=== PATIENT | male | born 1940 | race American Indian/Alaskan Native ===

== ENCOUNTER 2018-08-10 18:25 | Emergency (ER) | payer MEDICARE ==
[2018-08-10 19:19] LABS: Hematocrit 38.7 % (35.5-45.6); Hemoglobin 12.7 gm/dl (11.8-15.2); Mean Corpuscular HGB Conc 33 % (32-34); Mean Corpuscular Volume 89 fl (84-94); Platelet Count 217 K/mm3 (140-440); Red Blood Count 4.36 M/mm3 (3.65-5.03); Red Cell Distribution Width 14.1 % (13.2-15.2)
[2018-08-10 19:31] LABS: Partial Thromboplastin Time 24.2 Sec. (24.2-36.6)
[2018-08-10 19:38] LABS: Alanine Aminotransferase 9 units/L (7-56); Albumin 3.7 g/dL (3.9-5); BUN/Creatinine Ratio 14; Blood Urea Nitrogen 13 mg/dL (9-20); Calcium 9.3 mg/dL (8.4-10.2); Hemolysis Index 38
--- NOTE | 2018-08-11 00:03 | Emergency Department Report ---
ED Neuro Deficit HPI - General Chief Complaint: Extremity Injury, Lower Stated Complaint: LEG PAIN Time Seen by Provider: 08/10/18 23:00 Source: patient Mode of arrival: Wheelchair Limitations: No Limitations - History of Present Illness Initial Comments: 78 year old male with a past medical history of arthritis, GERD, hypertension, PVD, and PAD with leg stent placement presents to the hospital and complains of 2 episodes of right leg numbness and pain today. Patient was working in his daughter's yard along 1:00 PM. He had right-sided leg pain from the hip radiating down to the toes described as a tingling and numbness sensation. Positive associated pain. Symptoms lasted times one hour before resolving. Episode reoccurred about 5:30 PM and then resolved again. Patient denies any trauma or fall. He denies back pain, slurred speech, or other extremity weakness or numbness. No complaints of urinary incontinence or retention. Denies previous history of herniated disc, stroke, or sciatica. Patient does have history of claudication to bilateral lower extremities with walking however, that pain is different from this episode. Patient does not take aspirin or Plavix due to history of peptic ulcer disease - Related Data Home Medications: Home Medications Medication Instructions Recorded Confirmed Last Taken Travoprost [Travatan Z 0.004%] 1 drop OU QHS 06/02/13 09/14/17 02/16/16 Rosuvastatin (Nf) [Crestor] 20 mg PO QHS 02/17/16 09/14/17 02/16/16 Previous Rx's Medication Instructions Recorded Last Taken Type Lisinopril [Zestril TAB] 10 mg PO QDAY #30 tablet 09/15/17 Unknown Rx Metoprolol Xl [Metoprolol 50 mg PO QDAY #30 tablet 09/15/17 Unknown Rx SUCCINATE ER TAB] hydrALAZINE [Apresoline TAB] 25 mg PO Q8HR #90 tablet 09/15/17 Unknown Rx Gabapentin [Neurontin] 300 mg PO Q8HR #60 capsule 08/11/18 Unknown Rx traMADol [Ultram 50 MG tab] 50 mg PO Q6HR PRN #20 tablet 08/11/18 Unknown Rx Allergies/Adverse Reactions: Allergies Allergy/AdvReac Type Severity Reaction Status Date / Time No Known Allergies Allergy Verified 06/07/13 06:38 ED Review of Systems ROS: Stated complaint: LEG PAIN Other details as noted in HPI Comment: All other systems reviewed and negative ED Past Medical Hx - Past Medical History Previous Medical History?: Yes Hx Hypertension: Yes Hx Heart Attack/AMI: No Hx GERD: Yes (peptic ulcer disease) Hx Liver Disease: No Hx Renal Disease: No Hx Sickle Cell Disease: No Hx Arthritis: Yes (BACK AND ANKLES) Hx Seizures: No Hx Asthma: No Hx COPD: No Additional medical history: Venous insufficiency, High cholesterol, Osteoarthritis, PVD w/claudication, PVD,Atherosclerosis of [place] arteries [place] leg extremities, enlarged prostate - Surgical History Past Surgical History?: Yes Additional Surgical History: Jeffrey leg with stents - Social History Smoking Status: Never Smoker Substance Use Type: None - Medications Home Medications: Home Medications Medication Instructions Recorded Confirmed Last Taken Type Travoprost [Travatan Z 0.004%] 1 drop OU QHS 06/02/13 09/14/17 02/16/16 History Rosuvastatin (Nf) [Crestor] 20 mg PO QHS 02/17/16 09/14/17 02/16/16 History Lisinopril [Zestril TAB] 10 mg PO QDAY #30 tablet 09/15/17 Unknown Rx Metoprolol Xl [Metoprolol 50 mg PO QDAY #30 tablet 09/15/17 Unknown Rx SUCCINATE ER TAB] hydrALAZINE [Apresoline TAB] 25 mg PO Q8HR #90 tablet 09/15/17 Unknown Rx Gabapentin [Neurontin] 300 mg PO Q8HR #60 capsule 08/11/18 Unknown Rx traMADol [Ultram 50 MG tab] 50 mg PO Q6HR PRN #20 tablet 08/11/18 Unknown Rx ED Neuro Physical Exam - General Limitations: No Limitations Suspected Stroke: No - NIHSS Assessment Interval: Baseline 1a. Level of Consciousness: alert/keenly responsive 1b. LOC Questions: answers both correctly 1c. LOC Commands: performs tasks correctly 2. Best Gaze: normal 3. Visual: no visual loss 4. Facial Palsy: normal symmetrical movement 5b. Motor Arm Right: no drift 5a. Motor Arm Left: no drift 6a. Motor Leg Left: no drift 6b. Motor Leg Right: no drift 7. Limb Ataxia: absent 8. Sensory: normal 9. Best Language: no aphasia 10. Dysarthria: normal 11. Extinction/Inattention: no abnormality Total Score: 0 Stroke Severity: No Stroke Symptoms - Other Other exam information: General: No limitations, patient is alert in no acute distress Head exam: Atraumatic, normocephalic Eyes exam: Normal appearance, pupils equal reactive to light, extraocular movements intact ENT: Moist mucous membrane, normal oropharynx Neck exam: Normal inspection, full range of motion, no meningismus nontender Respiratory exam: Clear to auscultation bilateral, no wheezes, rales, crackles Cardiovascular: Normal rate and rhythm, normal heart sounds Abdomen: Soft, nondistended, and nontender, with normal bowel sounds, no rebound, or guarding Extremity: Full range of motion normal inspection no deformity, faint bilateral DP pulses palpated, no pain currently. Pain is not reproducible with straight leg raise. No tenderness at the gluteal area or sciatic notch Back: Normal Inspection, full range of motion, no tenderness Neurologic: Alert, oriented x3, cranial nerves intact, no motor or sensory deficit, patient able to ambulate without difficulty Psychiatric: normal affect, normal mood Skin: Warm, dry, intact ED Course Vital Signs 08/10/18 08/10/18 08/11/18 18:38 23:15 00:31 Temperature 97.4 F L Pulse Rate 86 71 65 Respiratory 20 17 18 Rate Blood Pressure 148/78 Blood Pressure 153/71 136/71 [Left] O2 Sat by Pulse 97 98 Oximetry - Consultations Consultation #1: 08/11/18 Case was discussed with neurologist Dr. Winslow. She agrees that symptoms appeared to be more peripheral/radicular as opposed to CVA given significant pain with symptoms. Advised outpatient follow-up - Lab Data Result diagrams: 08/10/18 19:03 08/10/18 19:03 Lab Results 08/10/18 08/10/18 08/10/18 Range/Units 19:03 19:03 19:03 WBC 10.0 (4.5-11.0) K/mm3 RBC 4.36 (3.65-5.03) M/mm3 Hgb 12.7 (11.8-15.2) gm/dl Hct 38.7 (35.5-45.6) % MCV 89 (84-94) fl MCH 29 (28-32) pg MCHC 33 (32-34) % RDW 14.1 (13.2-15.2) % Plt Count 217 (140-440) K/mm3 PT 13.6 (12.2-14.9) Sec. INR 1.00 (0.87-1.13) APTT 24.2 (24.2-36.6) Sec. Sodium 141 (137-145) mmol/L Potassium 4.3 (3.6-5.0) mmol/L Chloride 105.9 (98-107) mmol/L Carbon Dioxide 24 (22-30) mmol/L Anion Gap 15 mmol/L BUN 13 (9-20) mg/dL Creatinine 0.9 (0.8-1.5) mg/dL Estimated GFR > 60 ml/min BUN/Creatinine Ratio 14 % Glucose 139 H (75-100) mg/dL Calcium 9.3 (8.4-10.2) mg/dL Total Bilirubin 0.30 (0.1-1.2) mg/dL AST 14 (5-40) units/L ALT 9 (7-56) units/L Alkaline Phosphatase 92 (35-129) units/L Total Protein 8.0 (6.3-8.2) g/dL Albumin 3.7 L (3.9-5) g/dL Albumin/Globulin Ratio 0.9 % - Radiology Data Radiology results: report reviewed CT head: No acute findingsC FINAL REPORT PROCEDURE: CT LUMBAR SPINE WO CON TECHNIQUE: Computerized axial tomography of the lumbar spine was performed from T12 to the sacrum without contrast material. HISTORY: transient right leg paresthsias and pain COMPARISON: No prior studies are available for comparison. FINDINGS: There are no fractures or malalignments. There are defects in the inferior endplates of T12, L1, L2 and the superior endplate of L4 consistent with Schmorl's nodes. L1-2: There is moderate loss of disc height. There is no spinal stenosis. There is mild bilateral foraminal narrowing due to facet arthropathy and osteophytic ridging.. L2-3: There is moderate loss of disc height. There is mild disc bulging and moderate facet arthropathy causing mild spinal stenosis. There is moderate bilateral foraminal stenosis worse on the left due to osteophytic ridging.. L3-4: No significant abnormality. L4-5: There is significant loss of disc height. There is diffuse osteophytic ridging and bilateral facet hypertrophy. There is mild spinal stenosis. There is moderate bilateral foraminal stenosis worse on the left.. L5-S1: There is mild loss of disc height. There is no disc bulge or herniation or spinal stenosis. There is moderate bilateral foraminal stenosis due to osteophytic ridging and facet arthropathy.. Other: The sacrum and sacroiliac joints are intact. Soft tissues are unremarkable. IMPRESSION: There are multilevel degenerative changes with spinal and foraminal stenosis as described. There is no fracture or malalignment. - Medical Decision Making Patient appears to have more radicular pain without signs of stroke. Treated with tramadol and Neurontin. Outpatient follow-up with PMD advised. A symptomatic in the ED - Differential Diagnosis sciatica, radiculopathy, herniation Critical Care Time: No Critical care attestation.: If time is entered above; I have spent that time in minutes in the direct care of this critically ill patient, excluding procedure time. ED Disposition Clinical Impression: Sciatica Disposition: TO HOME OR SELFCARE Is pt being admited?: No Does the pt Need Aspirin: No Condition: Stable Instructions: Sciatica (ED) Additional Instructions: Take the medication as prescribed for your right leg numbness and pain. Please note both of these medications can cause drowsiness. Don't drive while taking tramadol. Follow up with your doctor for further treatment and management. Return if symptoms worsen as indicated by her discharge instructions. Prescriptions: Gabapentin [Neurontin] 300 mg PO Q8HR #60 capsule traMADol [Ultram 50 MG tab] 50 mg PO Q6HR PRN #20 tablet PRN Reason: Pain Referrals: HARJIT SOLER MD [Primary Care Provider] - 3-5 Days your, primary care doctor [Other] - 3-5 Days Time of Disposition: 03:57
[2018-08-11 00:31] VITALS: BP 136/71
--- NOTE | 2018-08-11 01:11 | Cat Scan Report ---
FINAL REPORT PROCEDURE: CT HEAD/BRAIN WO CON TECHNIQUE: Computerized tomography of the head was performed without contrast material. HISTORY: transient right leg paresthsias and pain COMPARISON: No prior studies are available for comparison. FINDINGS: Skull and scalp: Normal. Paranasal sinuses: Normal. Ventricles and subarachnoid spaces: Normal. Cerebrum: No evidence of hemorrhage, acute infarction or mass . Cerebellum and brainstem: No evidence of hemorrhage, acute infarction or mass. Vasculature: Normal. Comments: None. IMPRESSION: Normal Examination
--- NOTE | 2018-08-11 01:32 | Cat Scan Report ---
FINAL REPORT PROCEDURE: CT LUMBAR SPINE WO CON TECHNIQUE: Computerized axial tomography of the lumbar spine was performed from T12 to the sacrum wi thout contrast material. HISTORY: transient right leg paresthsias and pain COMPARISON: No prior studies are available for comparison. FINDINGS: There are no fractures or malalignments. There are defects in the inferior endplates of T12, L1, L2 a nd the superior endplate of L4 consistent with Schmorl's nodes. L1-2: There is moderate loss of disc height. There is no spinal stenosis. There is mild bilateral for aminal narrowing due to facet arthropathy and osteophytic ridging.. L2-3: There is moderate loss of disc height. There is mild disc bulging and moderate facet arthropath y causing mild spinal stenosis. There is moderate bilateral foraminal stenosis worse on the left due to osteophytic ridging.. L3-4: No significant abnormality. L4-5: There is significant loss of disc height. There is diffuse osteophytic ridging and bilateral fa cet hypertrophy. There is mild spinal stenosis. There is moderate bilateral foraminal stenosis worse on the left.. L5-S1: There is mild loss of disc height. There is no disc bulge or herniation or spinal stenosis. Th ere is moderate bilateral foraminal stenosis due to osteophytic ridging and facet arthropathy.. Other: The sacrum and sacroiliac joints are intact. Soft tissues are unremarkable. IMPRESSION: There are multilevel degenerative changes with spinal and foraminal stenosis as described. There is n o fracture or malalignment.
== END 2018-08-11 04:26 | disposition home or self-care (01) ==
LOC: ED 18:25
DX: M54.30 Sciatica, unspecified side (principal); I10 Essential (primary) hypertension; K21.9 Gastro-esophageal reflux disease without esophagitis; E78.00 Pure hypercholesterolemia, unspecified; M13.872 Other specified arthritis, left ankle and foot; M13.871 Other specified arthritis, right ankle and foot; M13.88 Other specified arthritis, other site; I73.9 Peripheral vascular disease, unspecified; Z79.899 Other long term (current) drug therapy
CPT/HCPCS: 36415; 70450; 72131; 80053; 85027; 85610; 85730

== ENCOUNTER 2018-12-16 08:09 | Outpatient (CLI) | payer MEDICARE ==
[2018-12-16 10:16] LABS: Chol/HDL Ratio 2.74 %
== END 2018-12-16 08:10 | disposition home or self-care (01) ==
LOC: LAB 08:09
PROVIDERS: ATTEND Internal Medicine
DX: E11.9 Type 2 diabetes mellitus without complications (principal); E78.5 Hyperlipidemia, unspecified; E78.00 Pure hypercholesterolemia, unspecified; I10 Essential (primary) hypertension
CPT/HCPCS: 36415; 80061; 83036; 87075; 87116

== ENCOUNTER 2019-05-04 09:28 | Outpatient (CLI) | payer MEDICARE ==
[2019-05-04 10:34] LABS: Basophils % (Auto) 0.6 % (0.0-1.8); Eosinophils # (Auto) 0.1 K/mm3 (0.0-0.4); Eosinophils % (Auto) 2.4 % (0.0-4.3); Hematocrit 43.4 % (35.5-45.6); Hemoglobin 14.3 gm/dl (11.8-15.2); Lymphocytes # (Auto) 1.8 K/mm3 (1.2-5.4); Mean Corpuscular HGB Conc 33 % (32-34); Mean Corpuscular Volume 89 fl (84-94); Monocytes # (Auto) 0.5 K/mm3 (0.0-0.8); Monocytes % (Auto) 10.6 % (0.0-7.3); Platelet Count 176 K/mm3 (140-440); Red Cell Distribution Width 14.5 % (13.2-15.2)
[2019-05-04 11:34] LABS: Alanine Aminotransferase 7 units/L (7-56); Albumin 4.1 g/dL (3.9-5); BUN/Creatinine Ratio 12; Blood Urea Nitrogen 11 mg/dL (9-20); Calcium 9.3 mg/dL (8.4-10.2); Chol/HDL Ratio 2.64 %; HDL Cholesterol 50 mg/dL (40-59); Hemolysis Index 0; LDL Cholesterol,Direct 72 mg/dL (50-130)
[2019-05-07 11:18] LABS: Vitamin D, 25-OH, D2 <4 ng/mL
== END 2019-05-04 09:29 | disposition home or self-care (01) ==
LOC: LAB 09:28
PROVIDERS: ATTEND Internal Medicine
DX: Z00.00 Encounter for general adult medical examination without abnormal findings (principal); Z13.29 Encounter for screening for other suspected endocrine disorder; Z13.21 Encounter for screening for nutritional disorder; E78.5 Hyperlipidemia, unspecified; E11.9 Type 2 diabetes mellitus without complications; I10 Essential (primary) hypertension; E78.00 Pure hypercholesterolemia, unspecified; K21.9 Gastro-esophageal reflux disease without esophagitis; Z72.0 Tobacco use
CPT/HCPCS: 36415; 80053; 80061; 82306; 82607; 83036; 84443; 85025

== ENCOUNTER 2019-08-30 06:07 | Day surgery (SDC) | payer MEDICARE ==
[~2019-08-30 06:07] MED LIST: LACTATED RINGERS 1,000 ML IV SCH
--- NOTE | 2019-08-30 07:17 | Anesthesia Consultation ---
Anesthesia Consult and Med Hx Date of service: 08/30/19 - Airway Anesthetic Teeth Evaluation: Dentures (upper and lower) ROM Head & Neck: Adequate Mental/Hyoid Distance: Adequate Mallampati Class: Class II Intubation Access Assessment: Probably Good - Pre-Operative Health Status ASA Pre-Surgery Classification: ASA2 Proposed Anesthetic Plan: General - Pulmonary Hx Smoking: Yes (STOPPED 22 YRS AGO) Hx Asthma: No SOB: Yes (OCC. SOB) COPD: No Hx Sleep Apnea: No (DENY PRE SCREEN HIGH RISK.) - Cardiovascular System Hx Hypertension: Yes Hx Coronary Artery Disease: No (high cholesterol) Hx Heart Attack/AMI: No Hx Angina: No Hx Peripheral Vascular Disease: Yes (BARRY. LEG STENTS) - Central Nervous System Hx Seizures: No CVA: No Hx Back Pain: Yes Hx Psychiatric Problems: No - Gastrointestinal Hx Ulcer: Yes (PEPTID ULCER DISEASE) Hx Gastroesophageal Reflux Disease: Yes (MILD) - Endocrine Hx Renal Disease: No Hx Liver Disease: No Hx Non-Insulin Dependent Diabetes: No (borderline) Hx Thyroid Disease: No - Hematic Hx Anemia: No Hx Sickle Cell Disease: No - Other Systems Hx Alcohol Use: Yes (OCC. WINE) Hx Substance Use: No Hx Cancer: No Hx Obesity: No
[2019-08-30] MEDS ORDERED: FAMOTIDINE 20 MG/2 ML INJ IV NR (07:18)
--- NOTE | 2019-08-30 07:18 | Anesthesia Day of Surgery ---
Anesthesia Day of Surgery - Day of Surgery Patient Examined: Yes Patient H&P Reviewed: Yes Patient is NPO: Yes Beta Blockers: Yes
[2019-08-30] MEDS ORDERED: fentaNYL 100 MCG/2 ML INJ IV PRN (07:24)
[2019-08-30] MEDS ORDERED: propofoL 200 MG/20 ML VIAL IV ONE (07:26)
[2019-08-30] MEDS ORDERED: HYDROmorphone 1 MG/1 ML INJ ONE (07:26)
[2019-08-30] MEDS ORDERED: LIDOCAINE MPF (2%) 20 MG/1 ML VIAL 5 ML ONE (07:26)
[2019-08-30] MEDS ORDERED: ceFAZolin/Water 2 GM/20 ML 2 GM/20 ML SYRINGE IV ONE (08:03)
[2019-08-30] MEDS ORDERED: ceFAZolin/STERILE WATER 2 GM/20 ML SYRINGE IV NR (08:03)
[2019-08-30] MEDS ORDERED: GENTAMICIN 160 MG in SODIUM CHLORIDE 0.9% 100 ML IV SCH (08:15)
[2019-08-30] MEDS ORDERED: ONDANSETRON 4 MG/2 ML INJ ONE (08:51)
[2019-08-30 09:53] VITALS: BP 113/56
--- NOTE | 2019-08-30 10:53 | Post Operative Note ---
Date of procedure: 08/30/19 Pre-op diagnosis: inc psa Post-op diagnosis: same Findings: pus bx Procedure: pus bx Anesthesia: GETA Surgeon: BECKY DIA Estimated blood loss: minimal Pathology: list (prostate) Specimen disposition: to lab Condition: stable Disposition: PACU
--- NOTE | 2019-08-30 10:54 | Discharge Summary ---
Short Stay Discharge Plan Activity: other (no streaining ) Weight Bearing Status: Full Weight Bearing Diet: low fat, low cholesterol, low salt Special Instructions: other (inc fluids ) Additional Instructions: INCREASE ORAL FLUIDS. AVOID STRAINING. NOTHING PER RECTUM. CALL FOR F/U APPT. Follow up with: RAJEEV ALLEN MD [Primary Care Provider] - 7 Days BECKY DIA MD [Staff Physician] - 7 Days Forms: Outpatient Surgery DC Inst.
--- NOTE | 2019-08-30 11:19 | Operative Report ---
PREOPERATIVE DIAGNOSES: Elevated PSA, rule out prostate cancer lesion on the MRI, but not too sick to go to the ASC. POSTOPERATIVE DIAGNOSES: Elevated PSA, rule out prostate cancer lesion on the MRI, but not too sick to go to the ASC. PROCEDURE: Saturation biopsies focusing on the lesion area. SURGEON: Dr. Ye. ANESTHESIA: General. FINDINGS: This is a gentleman who is not a candidate to be treated at the ASC for fusion biopsy, now presents for treatment. DESCRIPTION OF PROCEDURE: The patient was brought to the operating room and placed on the operating table. Following induction of anesthesia, placed in lithotomy position, prepped and draped in usual sterile fashion. The gland measured about 60 grams and we focused on the left lobe. Multiple biopsies, left base, left posterior aspect of the prostate were carried out. We did random biopsies of the rest of the gland. The patient tolerated the procedure well. Eleven specimen bottles were used, but we did multiple 2-3 biopsies of the left posterior. The patient tolerated the procedure well. No significant bleeding, brought to recovery in stable condition. JOB# [id number] JUSTIN/ALBINO
--- NOTE | 2019-08-30 11:31 | Ultrasound Report ---
Ultrasound-guided intraoperative HISTORY: Elevated PSA TECHNIQUE: Transrectal grayscale ultrasound. FINDINGS: Endorectal ultrasound guidance was provided by radiology during ultrasound-guided prostate biopsy by the urologist. Multiple biopsies were obtained. Please correlate with the procedural report as needed . IMPRESSION: Successful ultrasound-guided prostate biopsy by urology. Signer Name: Glenroy Carlisle Jr, MD Signed: 08/30/2019 11:27 AM Workstation Name: [id number]
--- NOTE | 2019-08-30 11:40 | XRay Report ---
ABDOMEN 1 VIEW: INDICATION: ELEVATED PSA. Intraoperative exam at the time of prostate biopsy. No RPG performed. Fluoroscopy time: 2 seconds COMPARISON: No relevant prior imaging study available. FINDINGS: Normal gas pattern. No urinary calculi identified. Bilateral iliac arterial stents. Degenerative canela ge in the spine. IMPRESSION: 1. Negative abdomen. Iliac arterial stents.. Signer Name: Patricio Bae MD Signed: 08/30/2019 11:36 AM Workstation Name: [id number]
== END 2019-08-30 10:40 | disposition home or self-care (01) ==
LOC: OR 06:07
PROVIDERS: ATTEND Urology
DX: R97.20 Elevated prostate specific antigen [PSA] (principal); N40.0 Benign prostatic hyperplasia without lower urinary tract symptoms; I10 Essential (primary) hypertension; K21.9 Gastro-esophageal reflux disease without esophagitis; E78.00 Pure hypercholesterolemia, unspecified; Z72.89 Other problems related to lifestyle; Z87.891 Personal history of nicotine dependence; Z79.899 Other long term (current) drug therapy; Z98.890 Other specified postprocedural states
CPT/HCPCS: 36415; 55700; 74018; 76872; 82962; 84132; 88305; 88342; 88344; J0690; J1170; J1580; J2405; J2704; J7120; 76998

== ENCOUNTER 2019-09-22 10:45 | Outpatient (CLI) | payer MEDICARE ==
--- NOTE | 2019-09-22 12:32 | Cat Scan Report ---
CT head without contrast INDICATION : R51 HEADACHE. TECHNIQUE: Axial imaging performed from the skull apex through the skull base without the use of con trast. All CT scans at this location are performed using CT dose reduction for ALARA by means of aut omated exposure control. COMPARISON: CT head from 08/11/2018 FINDINGS: Parenchyma: No acute intracranial hemorrhage or parenchymal abnormality. Ventricles: Ventricles are normal in size and appear symmetric. Soft tissues: Soft tissues including the orbits appear normal. Bones: No acute osseous abnormality. Sinuses: Sinuses and left-sided mastoid air cells are clear. The right-sided mastoid air cells remai n opacified. IMPRESSION: Unchanged opacified right-sided mastoid air cells could be seen with otomastoiditis. Othe rwise unremarkable exam. Signer Name: Tod Sky MD Signed: 09/22/2019 12:28 PM Workstation Name: [id number]
== END 2019-09-22 10:46 | disposition home or self-care (01) ==
LOC: CT 10:45
PROVIDERS: ATTEND Internal Medicine
DX: H70.891 Other mastoiditis and related conditions, right ear (principal); R51 Headache
CPT/HCPCS: 70450

== ENCOUNTER 2020-11-29 10:51 | Outpatient (CLI) | payer MEDICARE ==
--- NOTE | 2020-11-29 12:02 | Cat Scan Report ---
CT HEAD WITHOUT CONTRAST INDICATION / CLINICAL INFORMATION: UNSPECIFIED MASTOIDITIS, UNSPECIFIED EAR. TECHNIQUE: Axial imaging performed from the skull apex through the skull base without the use of cont rast. Sagittal and coronal reformatted images. All CT scans at this location are performed using CT dose reduction for ALARA by means of automated exposure control. COMPARISON: 09/22/2019 FINDINGS: CEREBRAL PARENCHYMA: No significant abnormality. No acute territorial infarct. HEMORRHAGE: None. EXTRA-AXIAL SPACES: Normal in size and morphology for the patient's age. VENTRICULAR SYSTEM: Normal in size and morphology for the patient's age. MIDLINE SHIFT OR HERNIATION: None. CEREBELLUM / BRAINSTEM: No significant abnormality. CALVARIUM: No significant abnormality. ORBITS: Normal as visualized. PARANASAL SINUSES / MASTOID AIR CELLS: The visualized paranasal sinuses and left mastoid air cells ar e well-aerated. The right mastoid air cells are partially opacified with fluid. There was complete op acification of the right mastoid air cells on the previous exam. There is no evidence for fracture, b sharad destruction or mass. Middle ear contents appear unremarkable. SOFT TISSUES of HEAD: No significant abnormality. ADDITIONAL FINDINGS: None. IMPRESSION: Unremarkable CT of the brain. Mild improvement in the right otomastoiditis is suggested since 09/22/2019 as described. Signer Name: Glenroy Carlisle Jr, MD Signed: 11/29/2020 11:57 AM Workstation Name: [id number]
== END 2020-11-29 10:52 | disposition home or self-care (01) ==
LOC: CT 10:51
PROVIDERS: ATTEND Internal Medicine
DX: H70.91 Unspecified mastoiditis, right ear (principal); R51.9 Headache, unspecified; R42 Dizziness and giddiness
CPT/HCPCS: 70450

== ENCOUNTER 2022-01-28 09:00 | Outpatient (CLI) | payer MEDICARE | END 2022-01-28 09:01 | disposition home or self-care (01) | LOC: LABHHL 09:00 | PROVIDERS: ATTEND Internal Medicine | DX: E11.9 Type 2 diabetes mellitus without complications (principal) | CPT/HCPCS: 36415; 83036 ==